=== PATIENT | female | born 1995 ===

== ENCOUNTER → 2019-11-16 08:50 | Outpatient (CLI) | payer OTHER | END | disposition home or self-care (01) | LOC: LAB 08:50 | PROVIDERS: ATTEND Radiology Diagnostic Radiology | DX: N30.00 Acute cystitis without hematuria (principal); N20.0 Calculus of kidney; Z83.438 Family history of other disorder of lipoprotein metabolism and other lipidemia; E03.8 Other specified hypothyroidism ==

== ENCOUNTER → 2019-11-16 | Outpatient (CLI) | payer OTHER | END | disposition home or self-care (01) | LOC: TOM 08:12 | PROVIDERS: ATTEND Radiology Diagnostic Radiology | DX: N20.0 Calculus of kidney (principal) ==

== ENCOUNTER 2021-03-28 06:46 | Outpatient (CLI) | payer OTHER | END 2021-03-28 14:49 | disposition home or self-care (01) | LOC: SONOGRAMA 06:46 | DX: N64.59 Other signs and symptoms in breast (principal) ==